=== PATIENT | female | born 1985 | race Caucasian/White ===

== ENCOUNTER 2017-10-04 11:30 | Outpatient (CLI) | payer MEDICAID | END 2017-10-04 11:31 | disposition home or self-care (01) | LOC: BICRAD 11:30 | PROVIDERS: ATTEND Family Medicine | DX: F17.200 Nicotine dependence, unspecified, uncomplicated (principal) | CPT/HCPCS: 71046 ==

== ENCOUNTER 2020-12-28 07:07 | Emergency (ER) | payer SELFPAY | END 2020-12-28 08:35 | disposition home or self-care (01) | LOC: ERS 07:07 | DX: B02.9 Zoster without complications (principal); G43.909 Migraine, unspecified, not intractable, without status migrainosus; F17.210 Nicotine dependence, cigarettes, uncomplicated | CPT/HCPCS: 99282 ==

== ENCOUNTER 2021-04-12 00:06 | Emergency (ER) | payer SELFPAY | END 2021-04-12 02:45 | disposition home or self-care (01) | LOC: ERS 00:06 | DX: B02.9 Zoster without complications (principal); F17.210 Nicotine dependence, cigarettes, uncomplicated; Z79.899 Other long term (current) drug therapy | CPT/HCPCS: 99282 ==

== ENCOUNTER 2021-04-27 03:39 | Emergency (ER) | payer SELFPAY | END 2021-04-27 04:17 | disposition home or self-care (01) | LOC: ERS 03:39 | DX: J06.9 Acute upper respiratory infection, unspecified (principal); G43.909 Migraine, unspecified, not intractable, without status migrainosus; F17.210 Nicotine dependence, cigarettes, uncomplicated | CPT/HCPCS: 71045; 93005 ==

== ENCOUNTER 2021-05-03 11:42 | Emergency (ER) | payer SELFPAY ==
[2021-05-03 13:12] LABS: Bilirubin Negative (Negative); Blood, Urine Negative (Negative); Clarity Clear (Clear); Glucose, Urine (Dipstick) Normal (Negative); Ketone, Urine Trace mg/dL (Negative); Leukocyte Negative Leu/uL (Negative); Nitrite Negative (Negative); Protein, Urine (Dipstick) 20 mg/dL (Neg-Trace); Specific Gravity, Urine 1.034 (1.002-1.036); pH, Urine 6.5 (5.0-9.0)
== END 2021-05-03 13:45 | disposition home or self-care (01) ==
LOC: ERS 11:42
DX: J20.9 Acute bronchitis, unspecified (principal); F17.210 Nicotine dependence, cigarettes, uncomplicated
CPT/HCPCS: 81003; 99283